=== PATIENT | female | born 1935 | race Two or more races ===

== ENCOUNTER → 2017-01-11 | Outpatient (CLI) | payer OTHER ==
--- NOTE | ~2017-01-11 | US200 ---
[facility] A Service of [facility] & [facility] RADIOLOGY TEXT RESULTS PATIENT: HARLAN JONES LOCATION: [facility] : 39 UNIT #: [id number] AGE: [address]: HARLAN STAHL ARPN SEX: F ORDER DR: [id number] [facility] [address] [place], [place] [address] [id number] O MR#: [id number] Acc #: [id number] NAME: HARLAN JONES : 1935 SEX: F STUDY DATE/TIME: 01/11/2017 14:52 UNIT: [facility] ROOM: STUDY DESCRIPTION: US Breast Guided Bx 1st Lesion Attending Physician: Harlan Stahl A.P.R.N. Referring Physician: Harlan Stahl A.P.R.N. Ordering Physician: Harlan Stahl A.P.R.N. Primary Care Physician: Ling Hannon Aprn MEDICAL IMAGING REPORT This report is preliminary unless electronic signature is present REVISED REPORT SEE ADDENDUM EXAM Ultrasound-guided core biopsy right breast mass. DATE 01/11/2017 HISTORY Right breast mass recommended for ultrasound-guided core biopsy. COMPARISON Right breast diagnostic ultrasound 12/05/2016 and bilateral diagnostic mammogram 11/22/2016, performed at an outside facility. FINDINGS Risks, benefits, indications of the procedure were discussed with the patient's daughter (power of patent prosecution attorney). Informed written consent was obtained. Standard timeout procedure performed. The right breast was prepped and draped in usual sterile fashion. 1% Lidocaine was injected at the chosen site. Utilizing ultrasound guidance, a 13 - 14-gauge coaxial Achieve biopsy needle set was advanced to the margin of the mixed cystic - solid mass lesion near the 12 o'clock axis of the right breast. Three 2.3 cm 14-gauge core needle biopsies were obtained and submitted in formalin for surgical pathology analysis. There is some oozing of dark blood products, thought to largely be from within the cystic component of the mass. Biopsy clip was advanced to the anterior - right medial margin of the mass, and clip placement was documented on ultrasound images and two-view postprocedure mammogram. Needle was removed. Hemostasis was achieved after application direct gentle pressure at the biopsy site. [facility]. [facility] A Service of [facility] RADIOLOGY TEXT RESULTS PATIENT: HARLAN JONES LOCATION: [facility] : 37 UNIT #: [id number] AGE: [address]: HARLAN STAHL ARPN SEX: F ORDER DR: ALEXUS Successful ultrasound-guided core biopsy right breast mass. No immediate complications. Dictated by... Delores Phan M.D. THIS IS AN ELECTRONICALLY VERIFIED REPORT Delores Phan M.D. 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 Oncology consultation advised. Pathology and imaging findings are concordant. Dictated by... Delores Phan M.D. THIS IS AN ELECTRONICALLY VERIFIED REPORT Delores Phan M.D. at 01/23/2017 2:17 PM JENNA/radha TD: 01/21/2017 10:24 JOB #: [id number] CC: Amanda/valeryision Please Delete MEDICAL IMAGING REPORT COPY
--- NOTE | ~2017-01-11 | MY14 ---
[facility] A Service of [facility] & [facility] RADIOLOGY TEXT RESULTS PATIENT: HARLAN JONES LOCATION: [facility] : 39 UNIT #: [id number] AGE: [address]: HARLAN STAHL ARPN SEX: F ORDER DR: [id number] [facility] [address] [place], [place] [address] [id number] O MR#: [id number] Acc #: [id number] NAME: HARLAN JONES : 1935 SEX: F STUDY DATE/TIME: 01/11/2017 15:37 UNIT: [facility] ROOM: STUDY DESCRIPTION: MY Post Bx Film Attending Physician: Harlan Stahl A.P.R.N. Referring Physician: Harlan Stahl A.P.R.N. Ordering Physician: Harlan Stahl A.P.R.N. Primary Care Physician: Ling Hannon Aprn MEDICAL IMAGING REPORT This report is preliminary unless electronic signature is present EXAM Right breast post lung biopsy clip placement mammogram DATE 01/11/2017 HISTORY Ultrasound-guided core biopsy of right breast mass today. Post clip placement. COMPARISON Ultrasound-guided core biopsy 01/11/2017. Bilateral mammogram 11/22/2016 performed at [facility]. FINDINGS CC and ML views were obtained of the right breast. The biopsy clip is located at the anterior margin of the 12-1 o'clock right breast mass. Pathology results pending. Dictated by... Delores Phan M.D. THIS IS AN ELECTRONICALLY VERIFIED REPORT Delores Phan M.D. at 01/21/2017 7:42 AM JENNA/rakesh TD: 01/11/2017 21:55 JOB #: [id number] MEDICAL IMAGING REPORT COPY
== END | disposition home or self-care (01) ==
LOC: CWCC 14:16
DX: C50.811 Malignant neoplasm of overlapping sites of right female breast (principal); Z17.0 Estrogen receptor positive status [ER+]
CPT/HCPCS: 88305; 88342; 88344; 88360; G0204